=== PATIENT | male | born 1975 | race Two or more races ===

== ENCOUNTER 2019-08-29 07:32 | Emergency (ER) | payer OTHER ==
[~2019-08-29] VITALS: Ht 180.3 cm; Wt 81.4 kg
[2019-08-29 07:55] VITALS: BP 148/91
== END 2019-08-29 10:00 | disposition home or self-care (01) ==
LOC: EMS 07:32
DX: J06.9 Acute upper respiratory infection, unspecified (principal); J40 Bronchitis, not specified as acute or chronic

== ENCOUNTER 2022-08-21 07:43 | Emergency (ER) | payer BC, OTHER ==
[~2022-08-21] VITALS: Ht 180.3 cm; Wt 77.3 kg
[2022-08-21 07:54] VITALS: BP 136/89
[2022-08-21] MEDS ORDERED: HYDR30CR39 TP (08:18)
== END 2022-08-21 08:31 | disposition home or self-care (01) ==
LOC: EMS 07:49
DX: N47.6 Balanoposthitis (principal)
CPT/HCPCS: 99282; Z7502